=== PATIENT | female | born 1985 | race Caucasian/White ===

== ENCOUNTER 2022-04-07 09:20 | Outpatient (CLI) | payer OTHER, SELFPAY ==
[2022-04-07 15:02] LABS: Albumin* 4.5 g/dL (3.3-5.0); Chloride* 105 mmol/L (96-114)
[2022-04-07 15:03] LABS: Potassium* 5.1 mmol/L (3.6-5.1); Sodium* 141 mmol/L (135-149)
[2022-04-07 15:05] LABS: Alkaline Phosphatase* 50 U/L (40-150); Aspartate Amino Transferase* 34 U/L (12-35); Bilirubin Total* 0.7 mg/dL (0.1-1.5); Blood Urea Nitrogen* 17 mg/dL (5-24); Carbon Dioxide* 30 mmol/L (20-32); Cholesterol* 207 mg/dL (90-199); Creatinine* 0.7 mg/dL (0.5-1.5); Estimated Glomerular Filt Rate 115 ml/min; Total Protein* 7.6 g/dL (6.0-8.3)
[2022-04-07 15:06] LABS: Alanine Aminotransferase* 37 U/L (4-35); Calcium* 9.3 mg/dL (8.4-10.6); Glucose* 90 mg/dL (60-115); HDL Cholesterol* 56 mg/dL (>=50); LDL Cholesterol Calculated 134 mg/dL (<100); Triglycerides* 87 mg/dL (40-149)
== END 2022-04-07 09:21 | disposition home or self-care (01) ==
PROVIDERS: PCP Family Medicine; Visit Provider Family Medicine
DX: Z00.00 Encounter for general adult medical examination without abnormal findings (principal); F33.41 Major depressive disorder, recurrent, in partial remission; G47.00 Insomnia, unspecified; R53.83 Other fatigue; Z13.6 Encounter for screening for cardiovascular disorders
CPT/HCPCS: 80053; 80061; 84443